=== PATIENT | female | born 2000 | race Caucasian/White ===

== ENCOUNTER 2022-04-12 21:09 | Emergency (ER) | payer MEDICAID ==
[2022-04-12] MEDS ORDERED: Bacitracin Oint 1 GM U/D Packet TOP ONE (23:00)
[2022-04-12] MEDS ORDERED: traMADol 50 MG Tab PO ONE (23:01)
[2022-04-12] MEDS ORDERED: Acetaminophen 500 MG Tab PO ONE (23:08)
== END 2022-04-12 23:20 | disposition home or self-care (01) ==
LOC: JP.ED 21:09
DX: L03.031 Cellulitis of right toe (principal); L23.7 Allergic contact dermatitis due to plants, except food; Z88.1 Allergy status to other antibiotic agents
CPT/HCPCS: 99283; A9270